=== PATIENT | male | born 1995 | race Caucasian/White ===

== ENCOUNTER 2020-03-10 09:43 | Emergency (ER) | payer OTHER ==
--- OUTSIDE RECORDS SUMMARY | 2020-03-10 09:45 | XMS REPORT | Continuity of Care Document ---
:1995 Author Organization [facility] t Address [address] [place] [address] Care Team Providers Name Role Phone Otoniel RODRIGUEZ Attending Clinician Unavailable Pob1, [facility] Attending Clinician Unavailable Problems This patient has no known problems. Allergies, Adverse Reactions, Alerts This patient has no known allergies or adverse reactions. Medications This patient has no known medications. Procedures This patient has no known procedures. Encounters Start End Encounter Admission Attending Care Care Encounter Source Date/Time Date/Time Type Type Clinicians Facility Department ID 2019-07-26 2019-07-26 Telephone ERICK Frederick [id number] 00:00:00 00:00:00 Elisa [place] [id number] [facility] [id number] 2019-07-25 2019-07-25 Urgent Pob1, Acute [facility] [id number] 14:40:17 14:59:20 [facility] [id number] [place] [id number] N[place] [id number] [address]al [address] Results This patient has no known results.
[2020-03-10] MEDS ORDERED: HYDROCODONE/APAP 10/325 TAB ONE (10:21)
--- NOTE | 2020-03-10 11:04 | EDPHYS ---
Physician Documentation [facility] Name: Paul Perdue Age: 24 yrs Sex: Male : 1995 Arrival Date: 03/10/2020 Time: 09:45 Bed 14 Private MD: Fredy Eng B ED Physician Regino Huston HPI: 03/10 10:17 This 24 yrs old Male presents to ER via Ambulatory with complaints of rn Laceration To Finger. 10:17 The patient or guardian reports injury. The complaints affect the finger pad/tip right rn 2nd finger. Onset: The symptoms/episode began/occurred just prior to arrival. Modifying factors: The symptoms are alleviated by nothing, the symptoms are aggravated by nothing. Severity of symptoms: At their worst the symptoms were moderate, in the emergency department the symptoms are unchanged. The patient has not experienced similar symptoms in the past. The patient has not recently seen a physician. Reports using grader meat, cut off skin of tip of 2nd finger, holding pressure. No other injury.. Historical: - Allergies: 09:50 No Known Allergies; aa5 - PMHx: 09:50 None; aa5 - PSHx: 09:50 Right Index; aa5 - Immunization history:: Adult Immunizations unknown. - Social history:: Smoking status: Patient reports the use of cigarette tobacco products, <1/2 pack a day . - Family history:: not pertinent. - Hospitalizations: : No recent hospitalization is reported. ROS: 10:17 MS/Extremity: + right 2nd fingertip injury rn Exam: 10:17 Constitutional: This is a well developed, well nourished patient who is awake, alert, rn and in no acute distress. MS/ Extremity: Pulses equal, no cyanosis. Neurovascular intact. 2nd right fingertip with clean angulated amputation of soft tissue/pinger tip pad, no bone exosed, no injury to finger nail. + venous bleeding noted, controlled with pressure. Vital Signs: 09:50 Temp 97.3(O); Weight 77.11 kg (R); Height 5 ft. 10 in. (177.80 cm) (R); aa5 11:33 BP 119 / 81; Pulse 77; Resp 16; Pulse Ox 96% ; bp 09:50 Body Mass Index 24.39 (77.11 kg, 177.80 cm) aa5 MDM: 09:49 Patient medically screened. rn 11:00 Differential diagnosis: laceration, partial amputation. Data reviewed: vital signs, rn nurses notes, and as a result, I will discharge patient. Counseling: I had a detailed discussion with the patient and/or guardian regarding: the historical points, exam findings, and any diagnostic results supporting the discharge/admit diagnosis, the need for outpatient follow up, to return to the emergency department if symptoms worsen or persist or if there are any questions or concerns that arise at home. Special discussion: I discussed with the patient/guardian in detail that at this point there is no indication for admission to the hospital. It is understood, however, that if the symptoms persist or worsen the patient needs to return immediately for re-evaluation. ED course: Markedly improved, bleeding nearly resolved after surgicel and pressure dressing, instructed to remove surgicel tomorrow evening with water, extra surgicel given to patient and instructed to reapply for another 48 hours if bleeds again. No bone exposed or palpated on exam, is superficial injury. . Administered Medications: 10:08 Drug: [place] 10 mg-325 mg 1 tabs Route: PO; bp 11:33 Follow up: Response: Pain is decreased bp Disposition: 03/10/20 11:02 Discharged to Home. Impression: Laceration without foreign body of left index finger without damage to nail. - Condition is Stable. - Discharge Instructions: Traumatic Finger Amputation, Laceration Care, Adult. - Prescriptions for Augmentin 875- 125 mg Oral Tablet - take 1 tablet by ORAL route every 12 hours for 10 days; 20 tablet. - Medication Reconciliation Form, Thank You Letter, Antibiotic Education, Prescription Opioid Use form. - Work release form (03/10/20 11:46). eb - Follow up: Private Physician; When: As needed; Reason: Recheck today's complaints, Re-evaluation by your physician. - Problem is new. - Symptoms have improved. Signatures: Regino Huston MD MD rn Calderon, Audri, RN RN aa5 Nick Wilson RN RN Rody Gambino Corrections: (The following items were deleted from the chart) 11:34 11:02 03/10/2020 11:02 Discharged to Home. Impression: Laceration without foreign body bp of left index finger without damage to nail. Condition is Stable. Forms are Medication Reconciliation Form, Thank You Letter, Antibiotic Education, Prescription Opioid Use. Follow up: Private Physician; When: As needed; Reason: Recheck today's complaints, Re-evaluation by your physician. Problem is new. Symptoms have improved. rn
--- NOTE | 2020-03-10 11:04 | ER ---
Nurse's Notes 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 Bleeding aa5 noted to right index finger, pt holding pressure to site. 09:50 Coronavirus screen: Client denies travel out of the [place] in the last 14 days. At this aa5 time, the client does not indicate any symptoms associated with coronavirus-19. Ebola Screen: Patient negative for fever greater than or equal to 101.5 degrees Fahrenheit, and additional compatible Ebola Virus Disease symptoms. Initial Sepsis Screen: Does the patient meet any 2 criteria? No. Patient's initial sepsis screen is negative. Does the patient have a suspected source of infection? No. Patient's initial sepsis screen is negative. Onset of symptoms was March 10, 2020. 09:50 Acuity: BRENDON 4 aa5 09:50 Method Of Arrival: Ambulatory aa5 09:50 Risk Assessment: Do you want to hurt yourself or someone else? Patient reports no aa5 desire to harm self or others. Triage Assessment: 09:50 General: Appears in no apparent distress. uncomfortable, slender, Behavior is bp cooperative, appropriate for age, anxious. Pain: Complains of pain in right index finger. EENT: No deficits noted. Neuro: No deficits noted. Cardiovascular: No deficits noted. Respiratory: No deficits noted. GI: No signs and/or symptoms were reported involving the gastrointestinal system. : No signs and/or symptoms were reported regarding the genitourinary system. Derm: No deficits noted. Musculoskeletal: No deficits noted. Historical: - Allergies: 09:50 No Known Allergies; aa5 - PMHx: 09:50 None; aa5 - PSHx: 09:50 Right Index; aa5 - Immunization history:: Adult Immunizations unknown. - Social history:: Smoking status: Patient reports the use of cigarette tobacco products, <1/2 pack a day . - Family history:: not pertinent. - Hospitalizations: : No recent hospitalization is reported. Screenin:00 Abuse screen: Denies threats or abuse. Denies injuries from another. Nutritional bp screening: No deficits noted. Tuberculosis screening: No symptoms or risk factors identified. Fall Risk None identified. Assessment: 09:50 General: SEE TRIAGE NOTE. bp 11:30 Reassessment: PT D/C HOME AMBULATORY, DX WITH FINGER LACERATION. bp Vital Signs: 09:50 Temp 97.3(O); Weight 77.11 kg (R); Height 5 ft. 10 in. (177.80 cm) (R); aa5 11:33 BP 119 / 81; Pulse 77; Resp 16; Pulse Ox 96% ; bp 09:50 Body Mass Index 24.39 (77.11 kg, 177.80 cm) aa5 ED Course: 09:45 Patient arrived in ED. ag5 09:46 Fredy Eng MD is Private Physician. ag5 09:49 Regino Huston MD is Attending Physician. rn 09:50 Arm band placed on Patient placed in an exam room, on a stretcher. aa5 09:54 Nick Wilson, MICHAEL is Primary Nurse. bp 10:00 Triage completed. aa5 10:00 Patient has correct armband on for positive identification. Bed in low position. Call bp light in reach. Side rails up X2. 11:00 Assist provider with laceration repair on right index finger that was 2.5 cm. or less bp using SURGICEL. Set up tray. Performed by Regino Huston MD Dressed with Dasha. 11:32 Patient did not have IV access during this emergency room visit. bp Administered Medications: 10:08 Drug: [place] 10 mg-325 mg 1 tabs Route: PO; bp 11:33 Follow up: Response: Pain is decreased bp Outcome: 11:02 Discharge ordered by . rn 11:32 Discharged to home ambulatory. bp 11:32 Condition: stable 11:32 Discharge instructions given to patient, Instructed on discharge instructions, follow up and referral plans. medication usage, wound care, Demonstrated understanding of instructions, follow-up care, medications, wound care, Prescriptions given X 1. 11:34 Patient left the ED. bp Signatures: Regino Huston MD MD rn Calderon, Audri RN RN [facility] Nick Wilson RN RN bp Jagdeep Anglin [facility]
[2020-03-10 11:38] VITALS: TEMP 97.3
[2020-03-10 11:39] VITALS: BP 119/81; O2SAT 96
== END 2020-03-10 11:34 | disposition home or self-care (01) ==
LOC: ER 09:43
PROC: 0JQJ0ZZ Repair Right Hand Subcutaneous Tissue and Fascia, Open Approach (ICD-10-PCS; principal; 2020-03-10)
DX: S61.210A Laceration without foreign body of right index finger without damage to nail, initial encounter (principal); W45.8XXA Other foreign body or object entering through skin, initial encounter; Y93.89 Activity, other specified; Y92.89 Other specified places as the place of occurrence of the external cause; Y99.8 Other external cause status; F17.210 Nicotine dependence, cigarettes, uncomplicated
CPT/HCPCS: 99283

== ENCOUNTER 2020-12-05 09:03 | Emergency (ER) | payer OTHER, SELFPAY ==
[2020-12-05] MEDS ORDERED: NA CHLORIDE 0.9% 500 ML ONE (09:54)
[2020-12-05] MEDS ORDERED: METOCLOPRAMIDE 10 MG/2mL INJ ONE (09:54)
[2020-12-05] MEDS ORDERED: DIPHENHYDRAMINE 50 MG/ML VIAL ONE (09:54)
[2020-12-05 10:13] LABS: ALT/SGPT 97 U/L (12-78); AST/SGOT 56 U/L (15-37); Albumin 4.5 g/dL (3.4-5.0); Alkaline Phosphatase 80 U/L (45-117); BUN Blood Urea Nitrogen 9 mg/dL (7-18); Bicarbonate 30 mmol/L (21-32); Bilirubin Direct 0.1 mg/dL (0-0.2); Bilirubin Total 0.4 mg/dL (0.2-1.0); Glucose Level 128 mg/dL (74-106); Lipase 45 U/L (73-393); Potassium 4.1 mmol/L (3.5-5.1); Sodium Level 140 mmol/L (136-145)
[2020-12-05 10:46] LABS: Absolute Lymphocytes (CBC) 0.5 K/uL (0.7-4.9); Basophils % 0.2 % (0-1.3); Hematocrit 44.7 % (39.6-49.0); Lymphocytes % 4.2 % (15.3-44.8); MPV 8.5 fL (7.6-11.3); RBC Red Blood Cell Count 4.86 M/uL (4.33-5.43)
--- NOTE | 2020-12-05 11:37 | RAD REPORT ---
EXAM DESCRIPTION: CTAbdomen Pelvis W Contrast - 12/05/2020 11:20 am CLINICAL HISTORY: Abdominal pain. ABD PAIN COMPARISON: No comparisons TECHNIQUE: Biphasic CT imaging of the abdomen and pelvis was performed with 100 ml non-ionic IV cont rast. All CT scans are performed using dose optimization technique as appropriate and may include automated exposure control or mA/KV adjustment according to patient size. FINDINGS: The lung bases are clear. The liver, spleen, pancreas, adrenal glands and kidneys are within normal limits. No bowel obstruction, free air, free fluid or abscess. The appendix is normal. No evidence of signi ficant lymphadenopathy. No suspicious bony findings. IMPRESSION: No acute intra-abdominal or pelvic finding.
--- NOTE | 2020-12-05 12:13 | RAD REPORT ---
EXAM DESCRIPTION: US - Abdomen Exam Limited - 12/05/2020 11:46 am CLINICAL HISTORY: ABD PAIN COMPARISON: No comparisons FINDINGS: The gallbladder demonstrates no gallstones. No pericholecystic fluid or gallbladder wall t hickening. The common bile duct is normal measuring 3 mm. The liver demonstrates no findings of intrahepatic biliary dilatation. IMPRESSION: Unremarkable examination.
[2020-12-05 12:40] LABS: Platelet Estimate ADEQ; White Blood Cell Scan OK (OK)
[2020-12-05 12:41] LABS: Blood Morphology Comment NOT SEEN (NOT SEEN)
--- NOTE | 2020-12-05 13:26 | ER ---
Nurse's Notes [facility] Name: Paul Perdue Age: 25 yrs Sex: Male : 1995 Arrival Date: 12/05/2020 Time: 09:05 Bed 19 Private MD: Diagnosis: Vomiting Presentation: 12/05 09:11 Chief complaint: Patient states: N/V since about 0100 this morning. Coronavirus screen: jl Vaccine status: Patient reports receiving the 1st dose of the Covid vaccine. JnJ nausea, vomiting. Client presents with at least one sign or symptom that may indicate coronavirus-19. Standard/surgical mask placed on the client. Provider contacted for isolation considerations. Ebola Screen: No symptoms or risks identified at this time. Initial Sepsis Screen: Does the patient meet any 2 criteria? No. Patient's initial sepsis screen is negative. Does the patient have a suspected source of infection? No. Patient's initial sepsis screen is negative. Risk Assessment: Do you want to hurt yourself or someone else? Patient reports no desire to harm self or others. Onset of symptoms was December 05, 2020 at 01:00. Care prior to arrival: None. 09:11 Method Of Arrival: Ambulatory [facility] 09:11 Acuity: BRENDON 3 jl7 Triage Assessment: 09:12 General: Appears in no apparent distress. uncomfortable, Behavior is calm, cooperative, jl7 appropriate for age. Pain: Complains of pain in abdomen diffusely Pain currently is 4 out of 10 on a pain scale. GI: Reports nausea, vomiting, Patient currently denies diarrhea. Historical: - Allergies: 09:12 No Known Allergies; jl7 - Home Meds: 09:12 None [Active]; jl7 - PMHx: 09:12 None; jl7 - PSHx: 09:12 None; jl7 - Immunization history:: Adult Immunizations up to date, Client reports receiving the Dominick \T\ Dominick single-dose vaccine. - Social history:: Smoking status: Reported history of juuling and/or vaping. Screenin:44 Abuse screen: Denies threats or abuse. Denies injuries from another. Nutritional tr6 screening: No deficits noted. Tuberculosis screening: No symptoms or risk factors identified. Fall Risk None identified. Assessment: :44 Reassessment: Patient and/or family updated on plan of care and expected duration. Pain tr6 level reassessed. Patient states feeling better. 12:00 Reassessment: Patient and/or family updated on plan of care and expected duration. Pain tr6 level reassessed. Patient is alert, oriented x 3, equal unlabored respirations, skin warm/dry/pink. 13:50 Reassessment: Patient and/or family updated on plan of care and expected duration. Pain tr6 level reassessed. Patient is alert, oriented x 3, equal unlabored respirations, skin warm/dry/pink. Patient states feeling better. Patient states symptoms have improved. 13:51 GI: Abdomen is flat. tr6 Vital Signs: 09:11 BP 121 / 75; Pulse 93; Resp 17; Temp 96.8; Pulse Ox 99% ; Weight 81.65 kg; Height 5 ft. jl7 10 in. (177.80 cm); Pain 4/10; 09:11 Body Mass Index 25.83 (81.65 kg, 177.80 cm) jl7 ED Course: 09:05 Patient arrived in ED. as 09:12 Triage completed. jl7 09:12 Alhaji Webb PA is PHCP. jmm 09:12 Seven Cool MD is Attending Physician. jmm 09:12 Arm band placed on right wrist. jl7 09:14 Roro Fan, MICHAEL is Primary Nurse. tr6 09:16 Attending Physician role handed off by Seven Cool MD ricardo 09:16 Soham Canseco MD is Attending Physician. ricardo 09:44 No provider procedures requiring assistance completed. Inserted saline lock: 18 gauge tr6 in right wrist, using aseptic technique. 10:44 Patient has correct armband on for positive identification. Placed in gown. Bed in low tr6 position. Call light in reach. Side rails up X 1. Pulse ox on. NIBP on. Door closed. Noise minimized. Visitors limited. Lights dimmed. Moved to private room. Warm blanket given. 11:20 CT Abd/Pelvis - IV Contrast Only In Process Unspecified. EDMS 11:46 US Abdomen Limited In Process Unspecified. EDMS 13:25 Librado Bustillos MD is Referral Physician. jmm 13:51 IV discontinued, intact, bleeding controlled, No redness/swelling at site. Pressure tr6 dressing applied. Administered Medications: 09:44 Drug: NS 0.9% 500 ml Route: IV; Rate: bolus; Site: right wrist; tr6 13:52 Follow up: Response: No adverse reaction; IV Status: Completed infusion; IV Intake: tr6 500ml 09:44 Drug: Reglan (metoCLOPramide) 20 mg Route: IVP; Site: right wrist; tr6 13:52 Follow up: Response: No adverse reaction; Nausea is decreased tr6 09:44 Drug: diphenhydrAMINE 12.5 mg Route: IVP; Site: right wrist; tr6 13:52 Follow up: Response: No adverse reaction tr6 Intake: 13:52 IV: 500ml; Total: 500ml. tr6 Outcome: 13:26 Discharge ordered by . clovis 13:51 Discharged to home ambulatory. tr6 13:51 Condition: improved 13:51 Discharge instructions given to patient, Instructed on discharge instructions, follow up and referral plans. medication usage, safety practices, Demonstrated understanding of instructions, follow-up care, medications, Prescriptions given X 1. 14:02 Patient left the ED. tr6 Signatures: Dispatcher [employer] EDMS Soham Canseco MD MD cha Mickail, Joel, PA PA jmm Martinez, Amelia as Leal, Jahala, MICHAEL RN jl7 Roro Fan RN RN tr6
--- NOTE | 2020-12-05 13:26 | EDPHYS ---
Physician Documentation [facility] Name: Paul Perdue Age: 25 yrs Sex: Male : 1995 Arrival Date: 12/05/2020 Time: 09:05 Bed 19 Private MD: ED Physician Soham Canseco HPI: 12/05 09:16 This 25 yrs old Male presents to ER via Ambulatory with complaints of jmm Vomiting, Weakness. 09:16 The patient presents to the emergency department with vomiting, abdominal pain. Onset: jmm The symptoms/episode began/occurred this morning. Possible causes: unknown. The symptoms are aggravated by nothing. The symptoms are alleviated by nothing. Associated signs and symptoms: Pertinent positives: abdominal pain. Is a 25-year-old male with no chronic medical conditions presents emerged part with complaints of ongoing generalized abdominal pain, vomiting beginning earlier this morning. Patient states he did drink to alcoholic beverages the night before. Denies infectious exposure. Patient does smoke marijuana.. Historical: - Allergies: 09:12 No Known Allergies; jl7 - Home Meds: 09:12 None [Active]; jl7 - PMHx: 09:12 None; jl7 - PSHx: 09:12 None; jl7 - Immunization history:: Adult Immunizations up to date, Client reports receiving the Dominick \T\ Dominick single-dose vaccine. - Social history:: Smoking status: Reported history of juuling and/or vaping. ROS: 09:16 Constitutional: Negative for fever, chills, and weight loss, Cardiovascular: Negative jmm for chest pain, palpitations, and edema, Respiratory: Negative for shortness of breath, cough, wheezing, and pleuritic chest pain. 09:16 Abdomen/GI: Positive for vomiting. 09:16 All other systems are negative. Exam: 09:16 Constitutional: This is a well developed, well nourished patient who is awake, alert, jmm and in no acute distress. Head/Face: atraumatic. Eyes: EOMI, no conjunctival erythema appreciated ENT: Moist Mucus Membranes Neck: Trachea midline, Supple Chest/axilla: Normal chest wall appearance and motion. Cardiovascular: Regular rate and rhythm. No edema appreciated Respiratory: Normal respirations, no respiratory distress appreciated 09:16 Skin: General appearance color normal MS/ Extremity: Moves all extremities, no obvious deformities appreciated, no edema noted to the lower extremities Neuro: Awake and alert, normal gait Psych: Behavior is normal, Mood is normal, Patient is cooperative and pleasant 09:16 Abdomen/GI: Inspection: abdomen appears normal, Bowel sounds: normal, Palpation: soft, mild abdominal tenderness, in all quadrants. Vital Signs: 09:11 BP 121 / 75; Pulse 93; Resp 17; Temp 96.8; Pulse Ox 99% ; Weight 81.65 kg; Height 5 ft. jl7 10 in. (177.80 cm); Pain 4/10; 09:11 Body Mass Index 25.83 (81.65 kg, 177.80 cm) jl7 MDM: 09:16 Patient medically screened. [facility] 13:25 Data reviewed: vital signs, nurses notes. Counseling: I had a detailed discussion with clovis the patient and/or guardian regarding: the historical points, exam findings, and any diagnostic results supporting the discharge/admit diagnosis, lab results, radiology results, the need for outpatient follow up, to return to the emergency department if symptoms worsen or persist or if there are any questions or concerns that arise at home. ED course: Patient is alert patient is alert and nontoxic in appearance in the ED. Imaging studies are negative. Patient states that he feels much better. Patient advised to follow GI or his PCP and otherwise given strict return precautions. Patient understood and agrees plan of care.. 12/05 09:24 Order name: Basic Metabolic Panel; Complete Time: 10:17 [facility] 12/05 09:24 Order name: CBC with Diff; Complete Time: 12:42 [facility] 12/05 09:24 Order name: Hepatic Function; Complete Time: 10:17 [facility] 12/05 09:24 Order name: Lipase; Complete Time: 10:17 [facility] 12/05 10:36 Order name: CT Abd/Pelvis - IV Contrast Only; Complete Time: 11:45 [facility] 12/05 12:40 Order name: CBC Smear Scan; Complete Time: 12:42 [facility] 12/05 09:24 Order name: IV Saline Lock; Complete Time: 09:27 [facility] 12/05 09:24 Order name: Labs collected and sent; Complete Time: 09:27 [facility] 12/05 10:36 Order name: US Abdomen Limited; Complete Time: 12:15 [facility] Administered Medications: 09:44 Drug: NS 0.9% 500 ml Route: IV; Rate: bolus; Site: right wrist; tr6 13:52 Follow up: Response: No adverse reaction; IV Status: Completed infusion; IV Intake: tr6 500ml 09:44 Drug: Reglan (metoCLOPramide) 20 mg Route: IVP; Site: right wrist; tr6 13:52 Follow up: Response: No adverse reaction; Nausea is decreased tr6 09:44 Drug: diphenhydrAMINE 12.5 mg Route: IVP; Site: right wrist; tr6 13:52 Follow up: Response: No adverse reaction tr6 Disposition Summary: 12/05/20 13:26 Discharge Ordered Location: Home [facility] Condition: Stable [facility] Diagnosis - Vomiting [facility] Followup: [facility] - With: Librado Bustillos MD - When: 2 - 3 days - Reason: Recheck today's complaints, Continuance of care, Re-evaluation by your physician Discharge Instructions: - Discharge Summary Sheet [facility] - Vomiting, Adult [facility] Forms: - Medication Reconciliation Form [facility] - Thank You Letter [facility] - Antibiotic Education [facility] - Prescription Opioid Use [facility] Prescriptions: - ondansetron 4 mg Oral tablet,disintegrating - place 1 tablet by TRANSLINGUAL route every 4-6 hours; 20 tablet; Refills: 0, [facility] Product Selection Permitted Addendum: 12/09/2020 06:55 Co-signature as Attending Physician, Soham Canseco MD I agree with the assessment and c pineda plan of care. Signatures: Dispatcher [employer] Soham Clay MD MD cha Mickail, Joel, PA PA jmm Leal, Jahala, RN RN jl7 Roro Fan, RN RN tr6
[2020-12-05 14:11] VITALS: BP 121/75; TEMP 96.8; O2SAT 99
== END 2020-12-05 14:02 | disposition home or self-care (01) ==
LOC: ER 09:03
DX: R11.10 Vomiting, unspecified (principal)
CPT/HCPCS: 36415; 74177; 76705; 80048; 80076; 83690; 85025; 96361; 96374; 96375; 99284; J1200; J2765; J7040; Q9967

== ENCOUNTER 2024-12-18 14:31 | Emergency (ER) | payer SELFPAY ==
[2024-12-18 15:31] LABS: Urine Microscopic Reflex YN NO UMIC
--- NOTE | 2024-12-18 16:13 | RAD REPORT ---
EXAM: Scrotum Testicles HISTORY: 29 years Male testicular pain COMPARISON: None TECHNIQUE: Multiplanar grayscale and color Doppler images were obtained in a testicular/scrotal ultra sound. Spectral analysis of the Doppler waveforms of the testicles were performed. FINDINGS: Right testicle: Normal in echogenicity. No focal mass. Normal internal flow. The right testicle sha ures 4.7 x 2.4 x 3.2 cm with volume of 18.3 mL. Left testicle: Normal in echogenicity. No focal mass. Normal internal flow. The left testicle measur es 5 x 2.8 x 2.8 cm with volume of 20.6 mL. Right epididymis. 2 mm right epididymal cyst. Normal internal flow. Left epididymis. No epididymal cyst. Normal internal flow. No significant hydroceles. No varicocele. IMPRESSION: No significant scrotal/testicular abnormality Bilateral testicular blood flow.
--- NOTE | 2024-12-18 16:51 | ER ---
Nurse's Notes [facility] Name: Paul Perdue Age: 29 yrs Sex: Male : 1995 Arrival Date: 12/18/2024 Time: 14:31 Bed 9 Private MD: Diagnosis: Epididymitis Presentation: 12/18 14:49 Chief complaint: Patient states: BEGAN HAVING RT TESTICLE PAIN ON WEDNESDAY, ENT TO ER dd2 IN [place]. ADVISED HE HAD A CYST. PT REPORTS WORSE PAIN NOW AND RT TESTICLE "SITTING HIGHER THAN LEFT". Coronavirus screen: At this time, the client does not indicate any symptoms associated with coronavirus-19. Ebola Screen: No symptoms or risks identified at this time. Initial Sepsis Screen: Does the patient meet any 2 criteria? No. Patient's initial sepsis screen is negative. Does the patient have a suspected source of infection? No. Patient's initial sepsis screen is negative. Risk Assessment: Do you want to hurt yourself or someone else? Patient reports no desire to harm self or others. Onset of symptoms was December 16, 2024. 14:49 Method Of Arrival: Ambulatory dd2 14:49 Acuity: BRENDON 3 dd2 Triage Assessment: 14:52 General: Appears in no apparent distress. uncomfortable, Behavior is calm, cooperative, dd2 appropriate for age. Pain: Complains of pain in right testicle. : Reports pain in right testicle. Historical: - Allergies: 14:52 No Known Allergies; dd2 - PMHx: 14:52 Depressive disorder; dd2 - PSHx: 14:52 None; dd2 - Social history:: Smoking status: Reported history of juuling and/or vaping. Screenin:11 [facility] ED Fall Risk Assessment (Adult) History of falling in the last 3 months, jb4 including since admission No falls in past 3 months (0 pts) Confusion or Disorientation No (0 pts) Intoxicated or Sedated No (0 pts) Impaired Gait No (0 pts) Mobility Assist Device Used No (0 pt) Altered Elimination No (0 pt) Score/Fall Risk Level 0 - 2 = Low Risk Oriented to surroundings, Maintained a safe environment. Abuse screen: Denies threats or abuse. Nutritional screening: No deficits noted. Tuberculosis screening: No symptoms or risk factors identified. Assessment: 16:11 General: Appears comfortable, Behavior is calm, cooperative, appropriate for age. Pain: jb4 Complains of pain in right testicle Pain does not radiate. Pain currently is 5 out of 10 on a pain scale. Neuro: Level of Consciousness is awake, alert, obeys commands, Oriented to person, place, time, situation. Cardiovascular: Patient's skin is warm and dry. Respiratory: Airway is patent Respiratory effort is even, unlabored, Respiratory pattern is regular, symmetrical. Derm: Skin is intact, Skin is pink, warm \\T\\ dry. Musculoskeletal: Circulation, motion, and sensation intact. Range of motion: intact in all extremities. 17:12 Reassessment: Patient appears in no apparent distress at this time. Patient and/or jb4 family updated on plan of care and expected duration. Pain level reassessed. Patient is alert, oriented x 3, equal unlabored respirations, skin warm/dry/pink. Vital Signs: 14:49 BP 145 / 81; Pulse 81; Resp 16; Temp 98.4; Pulse Ox 99% on R/A; Weight 86.18 kg; Height dd2 5 ft. 10 in. ; Pain 7/10; 14:49 Body Mass Index 27.26 (86.18 kg, 177.8 cm) dd2 14:49 Pain Scale: Adult dd2 ED Course: 14:34 Patient arrived in ED. im 14:43 Geraldo Briceño MD is Attending Physician. sp3 14:52 Triage completed. dd2 14:52 Arm band placed on right wrist. dd2 15:15 Urine collected: clean catch specimen, sent to lab. pm7 15:22 US Scrotum Testicles In Process Unspecified. EDMS 15:56 Paul Santiago, MICHAEL is Primary Nurse. jb4 16:11 Patient has correct armband on for positive identification. Bed in low position. Call jb4 light in reach. Side rails up X 1. Provided Education on: plan of care. 16:50 Yony Lima MD is Referral Physician. sp3 17:12 No provider procedures requiring assistance completed. Patient did not have IV access jb4 during this emergency room visit. Administered Medications: No medications were administered Medication: 16:11 VIS not applicable for this client. jb4 Outcome: 16:51 Discharge ordered by . sp3 17:12 Discharged to home ambulatory, jb4 17:12 Condition: stable 17:12 Discharge instructions given to patient, Instructed on discharge instructions, follow up and referral plans. no drinking with medication, no driving heavy equipment, medication usage, Demonstrated understanding of instructions, follow-up care, medications, Prescriptions given X 3, 17:13 Patient left the ED. jb4 Signatures: Dispatcher [employer] EDMS Paul Santiago RN RN jb4 Geraldo Briceño MD MD sp3 Mariola George DIANA, RN RN dd2 Celina Harper pm7
--- NOTE | 2024-12-18 16:51 | EDPHYS ---
Physician Documentation [facility] Name: Paul Perdue Age: 29 yrs Sex: Male : 1995 Arrival Date: 12/18/2024 Time: 14:31 Bed 9 Private MD: ED Physician Geraldo Briceño HPI: 12/18 16:47 This 29 yrs old Male presents to ER via Ambulatory with complaints of Testicular Pain. sp3 16:47 29-year-old male with history of depression presents to the ED with recurrent right sp3 testicular pain. Patient was seen at [facility] on Wednesday 2 days ago and received an ultrasound and workup. He states that no pain medicine was given and he did not get an explanation as to what was going on. Pain increased over the last 48 hours he presents for recurrent symptoms. He denies any fever, prior STI, penile pain, abdominal pain, vomiting, diarrhea, or any other signs or symptoms on ROS at this time.. Historical: - Allergies: 14:52 No Known Allergies; dd2 - PMHx: 14:52 Depressive disorder; dd2 - PSHx: 14:52 None; dd2 - Social history:: Smoking status: Reported history of juuling and/or vaping. ROS: 16:48 Constitutional: Negative for fever, chills, and weight loss, Eyes: Negative for injury, sp3 pain, redness, and discharge, ENT: Negative for injury, pain, and discharge, Neck: Negative for injury, pain, and swelling, Cardiovascular: Negative for chest pain, palpitations, and edema, Respiratory: Negative for shortness of breath, cough, wheezing, and pleuritic chest pain, Abdomen/GI: Negative for abdominal pain, nausea, vomiting, diarrhea, and constipation, Back: Negative for injury and pain, MS/Extremity: Negative for injury and deformity, Skin: Negative for injury, rash, and discoloration, Neuro: Negative for headache, weakness, numbness, tingling, and seizure, Psych: Negative for depression, anxiety, suicide ideation, homicidal ideation, and hallucinations, Allergy/Immunology: Negative for hives, rash, and allergies, Endocrine: Negative for neck swelling, polydipsia, polyuria, polyphagia, and marked weight changes, 16:48 All other systems are negative, Exam: 16:49 Constitutional: This is a well developed, well nourished patient who is awake, alert, sp3 and in no acute distress. Head/Face: Normocephalic, atraumatic. Eyes: Pupils equal round and reactive to light, extra-ocular motions intact. Lids and lashes normal. Conjunctiva and sclera are non-icteric and not injected. Cornea within normal limits. Periorbital areas with no swelling, redness, or edema. Neck: Trachea midline, no thyromegaly or masses palpated, and no cervical lymphadenopathy. Supple, full range of motion without nuchal rigidity, or vertebral point tenderness. No Meningismus. Chest/axilla: Normal chest wall appearance and motion. Nontender with no deformity. No lesions are appreciated. Cardiovascular: Regular rate and rhythm with a normal S1 and S2. No gallops, murmurs, or rubs. Normal PMI, no JVD. No pulse deficits. Respiratory: Lungs have equal breath sounds bilaterally, clear to auscultation and percussion. No rales, rhonchi or wheezes noted. No increased work of breathing, no retractions or nasal flaring. Abdomen/GI: Soft, non-tender, with normal bowel sounds. No distension or tympany. No guarding or rebound. No evidence of tenderness throughout. Back: No spinal tenderness. No costovertebral tenderness. Full range of motion. Skin: Warm, dry with normal turgor. Normal color with no rashes, no lesions, and no evidence of cellulitis. MS/ Extremity: Pulses equal, no cyanosis. Neurovascular intact. Full, normal range of motion. 16:49 : Mild right epididymal pain., Vital Signs: 14:49 BP 145 / 81; Pulse 81; Resp 16; Temp 98.4; Pulse Ox 99% on R/A; Weight 86.18 kg; Height dd2 5 ft. 10 in. ; Pain 7/10; 14:49 Body Mass Index 27.26 (86.18 kg, 177.8 cm) dd2 14:49 Pain Scale: Adult dd2 MDM: 14:49 Medical Screening Exam initiated sp3 16:49 Data reviewed: vital signs, nurses notes, lab test result(s), radiologic studies. ED sp3 course: 29-year-old male with right testicular pain. Differential diagnosis includes epididymitis, testicular torsion, UTI, other scrotal abnormality. Ultrasound is normal and demonstrates no torsion with good arterial flow. Clinically patient may have epididymitis. Urine is negative. Will treat with antibiotics and follow-up with urology. Also pain medication and anti-inflammatories.. 12/18 14:43 Order name: UA Rfx Tee Cult if indicated; Complete Time: 16:18 sp3 12/18 14:43 Order name: US Scrotum Testicles; Complete Time: 16:18 sp3 12/18 14:43 Order name: NPO; Complete Time: 16:20 sp3 Administered Medications: No medications were administered Disposition Summary: 12/18/24 16:51 Discharge Ordered Notes: Location: Home sp3 Condition: Stable sp3 Diagnosis - Epididymitis sp3 Followup: sp3 - With: Yony Lima MD - When: Upon discharge from the Emergency Department - Reason: Continuance of care Discharge Instructions: - Discharge Summary Sheet sp3 - Epididymitis sp3 Forms: - Medication Reconciliation Form sp3 - Antibiotic Education sp3 - Prescription Opioid Use sp3 - Patient Portal Instructions sp3 - Leadership Thank You Letter sp3 Prescriptions: - Diclofenac Sodium 75 mg Oral Tablet Sustained Release - take 1 tablet ORAL route 2 times per day; 30 tablet; Refills: 0, Product sp3 Selection Permitted - Tramadol 50 mg Oral Tablet - take 1 tablet ORAL route every 8 hours as needed; 12 tablet; Refills: 0, sp3 Product Selection Permitted - Bactrim DS 800-160 mg Oral Tablet - take 1 tablet ORAL route every 12 hours for 7 days; 14 tablet; Refills: 0, sp3 Product Selection Permitted Signatures: Dispatcher [employer] Geraldo Hooks MD MD sp3 JESSICA HUDDLESTON RN RN dd2
[2024-12-18 22:25] VITALS: BP 145/81; TEMP 98.4; O2SAT 99
== END 2024-12-18 17:13 | disposition home or self-care (01) ==
LOC: ER 14:31
DX: N45.1 Epididymitis (principal)
CPT/HCPCS: 76870; 81003; 93975; 99283